=== PATIENT | male | born 1945 | race African-American/Black ===

== ENCOUNTER 2018-11-20 12:00 | Day surgery (SDC) | payer BC ==
[2018-11-20] MEDS ORDERED: PROPOFOL 20 ML (13:35)
[2018-11-20] MEDS ORDERED: MIDAZOLAM 1 MG/ML 2 ML INJ (13:35)
[2018-11-20] MEDS ORDERED: LIDOCAINE 2% (SDV) 5 ML INJ (13:35)
[2018-11-20] MEDS ORDERED: FENTAnyl 50 MCG/ML VIAL (13:35)
== END 2018-11-20 15:07 | disposition home or self-care (01) ==
LOC: GIL 12:00
DX: R19.4 Change in bowel habit (principal); D12.6 Benign neoplasm of colon, unspecified; K57.30 Diverticulosis of large intestine without perforation or abscess without bleeding; K64.8 Other hemorrhoids; I10 Essential (primary) hypertension
CPT/HCPCS: 45380; 88305